=== PATIENT | female | born 1970 | race African-American/Black ===

== ENCOUNTER → 2017-07-11 | Outpatient (CLI) | payer SELFPAY ==
[~2017-07-11] MED LIST: ADVAIR HFA 115-12 GM INH; ALBUTEROL17 GM INH; BENADRYL25 M3 PO; BUPROPION XL300 M1 PO; CETIRIZINE HCL10 MG PO; EFFEXOR XR75 MG PO; EPIPEN0.3 MG/0.1 IM; FLONASE 0.05% N16 G1; QUETIAPINE FUM300 MG PO; RANITIDINE HCL150 M1 PO; SINGULAIR PO; TOPAMAX50 MG PO
== END | disposition home or self-care (01) ==
LOC: CBAR 08:11
DX: E66.01 Morbid (severe) obesity due to excess calories (principal)
CPT/HCPCS: 76000

== ENCOUNTER → 2017-07-11 | Outpatient (CLI) | payer OTHER ==
[2017-07-11 12:54] LABS: CHOLESTEROL 181 mg/dL (0-200); GLUCOSE FASTING 100 mg/dL (70-110); HDL CHOLESTEROL 43 mg/dL (35-95); LDL CHOLESTEROL 128 mg/dL (-130); LDL/HDL RATIO 3 RATIO (0-4); TRIGLYCERIDES 49 mg/dL (10-160)
== END | disposition home or self-care (01) ==
LOC: CLAB 11:33
PROVIDERS: Surgery
DX: E66.01 Morbid (severe) obesity due to excess calories (principal)
CPT/HCPCS: 36415; 80061; 82947